=== PATIENT | female | born 1955 | race Two or more races ===

== ENCOUNTER 2019-03-09 07:18 | Outpatient (CLI) | payer OTHER | END 2019-03-09 08:00 | disposition home or self-care (01) | LOC: NUCLEAR 07:18 | DX: E05.00 Thyrotoxicosis with diffuse goiter without thyrotoxic crisis or storm (principal) | CPT/HCPCS: 78012; A9531 ==

== ENCOUNTER 2019-03-10 07:59 | Outpatient (CLI) | payer OTHER | END 2019-03-10 08:30 | disposition home or self-care (01) | LOC: NUCLEAR 07:59 | DX: E05.00 Thyrotoxicosis with diffuse goiter without thyrotoxic crisis or storm (principal) | CPT/HCPCS: 78013; A9512 ==